=== PATIENT | male | born 1950 | race Two or more races ===

== ENCOUNTER 2020-12-28 08:00 | Inpatient (IN) | payer OTHER ==
[~2020-12-28] VITALS: Ht 182.9 cm; Wt 5.0 kg
[2020-12-28] MEDS ORDERED: OMEPRAZOLE PO (09:08)
[2021-01-18] MEDS ORDERED: PROAIR HFA8.5 GM (11:47)
[2021-01-18] MEDS ORDERED: OMEPRAZOLE40 MG (11:47)
[2021-01-21] MEDS ORDERED: CIPRO500 MG PO (10:32)
[2021-01-21] MEDS ORDERED: SIMETHICONE80 MG PO (10:33)
[2021-01-21] MEDS ORDERED: NORFLEX100MG PO (10:33)
== END 2021-01-21 12:55 | disposition home or self-care (01) | DRG 326 ==
LOC: SURH 01-04 08:00 → O/R 01-18 06:06 → SURH 01-18 17:25
PROVIDERS: ADMIT Surgery; ATTEND Surgery
PROC: 0DS64ZZ Reposition Stomach, Percutaneous Endoscopic Approach (ICD-10-PCS; 2021-01-18)
PROC: 0BUT4JZ Supplement Diaphragm with Synthetic Substitute, Percutaneous Endoscopic Approach (ICD-10-PCS; principal; 2021-01-18 08:00)
PROC: 0WUF4JZ Supplement Abdominal Wall with Synthetic Substitute, Percutaneous Endoscopic Approach (ICD-10-PCS; 2021-01-18 08:00)
PROC: BD41ZZZ Ultrasonography of Esophagus (ICD-10-PCS; 2021-01-20)
DX: K44.0 Diaphragmatic hernia with obstruction, without gangrene (principal); K56.2 Volvulus; K42.0 Umbilical hernia with obstruction, without gangrene; J98.11 Atelectasis; K31.89 Other diseases of stomach and duodenum; K43.9 Ventral hernia without obstruction or gangrene; I49.9 Cardiac arrhythmia, unspecified

== ENCOUNTER → 2021-01-12 10:33 | Outpatient (CLI) | payer OTHER ==
[~2021-01-12 10:33] MED LIST: CIPRO500 MG PO; NORFLEX100MG PO; OMEPRAZOLE PO; OMEPRAZOLE40 MG; PROAIR HFA8.5 GM; SIMETHICONE80 MG PO
== END | disposition home or self-care (01) ==
LOC: LAB 10:33
PROVIDERS: ATTEND Surgery
DX: Z03.818 Encounter for observation for suspected exposure to other biological agents ruled out (principal)